=== PATIENT | female | born 1950 | race Caucasian/White ===

== ENCOUNTER → 2018-10-05 11:17 | Outpatient (CLI) | payer MEDICARE, OTHER, SELFPAY ==
[2018-10-07 13:49] LABS: Rubeola Measles IgG > 300.00 AU/mL (< 25.00)
== END ==
PROVIDERS: Family Provider Specialist; PCP Family Medicine; Visit Provider Family Medicine
DX: Z11.59 Encounter for screening for other viral diseases (principal)
CPT/HCPCS: 36415; 86765

== ENCOUNTER 2018-12-14 07:55 | Day surgery (SDC) | payer MEDICARE, OTHER, SELFPAY ==
[2018-12-07 12:08] VITALS: BMI 19.3
[2018-12-14] VITALS (9 sets, daily range): BP systolic 99–129; BP diastolic 48–72; PULSE 55–64; RESP 12–16; TEMP 36.1–36.4; O2SAT 95–99; BMI 18.8
--- NOTE | 2018-12-14 | PATH_ITS ---
[facility] Accession Number: [id number] . 01 Material submitted: . endometrium - ENDOMETRIAL CURRETTINGS . 02 Diagnosis: Endometrium, Curettage: Complex endometrial hyperplasia without atypia. Please see comment. V/12/16/2018 . 02 Comment: As part of routine quality assurance director, this case was also reviewed by Dr. Finney, who agrees with the diagnosis. . 02 Electronically signed: . Christina Khanna MD, Pathologist NPI- [id number] . 01 Gross description: . ENDOMETRIAL CURRETTINGS: Received in formalin are minute fragments of mucoid and hemorrhagic material measuring 1.5 x 1.5 x 0.4 cm in aggregate. Submitted in toto in 1 cassette. /DM /DM . 02 Pathologist provided ICD-10: N85.01 . 02 CPT . 118974 Performed at: 01 [facility] [address], [place], [place] [id number] MD Cain Simpson MD Phone: [phone] Performed at: 02 [facility] [place] [address] [place], [place] [id number] MD Christina Khanna MD Phone: [phone]
[2018-12-14] MEDS: LACTATED RINGERS 1,000 ML 42 ML IV (08:15)
--- NOTE | 2018-12-14 08:30 | PM.PREOP ---
Pre-operative Note Interval Note History & Physical reviewed/Exam performed by Physician: Yes Changes to H&P: No H&P completed within 30 days and has changed as indicated here:: see 12/08 out pt note
--- NOTE | 2018-12-14 09:08 | SUR.OPER ---
Lithotomy on padded OR bed, head on pillow, arms secured on padded arm boards at <90 degrees abduction. Legs secured in padded yellow fins stirrups.
--- NOTE | 2018-12-14 09:35 | PM.OP.1 ---
Operative Date/Time/Diagnoses Date of procedure: 12/14/18 Time of procedure: 09:35 Pre-op diagnosis: Postmenopausal bleeding Post-op diagnosis: same Procedure & Clinicians Procedure: Hysteroscopy with resection of polyp and D&C Same procedure as scheduled: Yes Indications: Postmenopausal bleeding Surgeon: Ruchi Nash Click Yes if Unassisted: Yes Anesthesia Type: General Operative Notes Findings: Endometrial polyp with irregular endometrial lining Closure Type: not applicable Specimen(s): other (Resected polyp and endometrial curettage) Estimated Blood Loss (mL): 10 Blood products transfused: none Procedure in detail: The patient was brought to the operating room where she underwent general anesthesia. She was placed in low stirrups She was prepped and draped in usual sterile fashion with pulsatile stockings in place and functional, warming in place. No antibiotics were indicated. Her bladder was drained with in and out catheter. A single-tooth tenaculum was placed on the anterior lip of the cervix and the uterus dilated to #8 Hegar dilator. The hysteroscope was placed into the uterus with a sorbitol solution running and under constant suction. The resecting loop set at 80 W of cutting was used to resect the polyp down to the level of the endometrium. A endometrial curettage was performed. The fibroid and the endometrial curettage was sent to pathology. The patient went to recovery room in good condition counts of instruments and sponges were correct. The sorbitol solution I=O approximately 1000 mL. Complications: none Condition: stable Disposition: same day surgery Plan for aftercare: Home when awake and stable follow-up in 2 week
== END 2018-12-14 10:34 | disposition home or self-care (01) ==
PROVIDERS: Family Provider Specialist; PCP Family Medicine; Visit Provider Specialist
PROC: 0UDB8ZZ Extraction of Endometrium, Via Natural or Artificial Opening Endoscopic (ICD-10-PCS; CPT 58558; principal; 2018-12-14 08:45)
DX: N85.01 Benign endometrial hyperplasia (principal)
CPT/HCPCS: 58558; 88305; J1100; J1885; J2405; J2704; J3010

== ENCOUNTER → 2019-01-16 13:03 | Outpatient (CLI) | payer MEDICARE, OTHER, SELFPAY ==
--- NOTE | 2019-01-16 | DI.MG.S_ITS ---
BILATERAL DIGITAL SCREENING MAMMOGRAM 3D/2D WITH CAD: 01/16/2019 CLINICAL: Routine screening. Comparison is made to exams dated: 12/25/2017 mammogram, 10/14/2016 mammogram, and 02/18/2015 mammogram - [facility]. The tissue of both breasts is heterogeneously dense. This may lower the sensitivity of mammography. Current study was also evaluated with a Computer Aided Detection (CAD) system. No significant masses, calcifications, or other findings are seen in either breast. There has been no significant interval change. IMPRESSION: NEGATIVE There is no mammographic evidence of malignancy. A 1 year screening mammogram is recommended. This exam was interpreted at Station ID: [id number]. NOTE: For mammograms, a report in lay terms will be sent to the patient. Approximately 15% of breast malignancies will not be visualized mammographically. In the management of a palpable breast mass, a negative mammogram must not discourage biopsy of a clinically suspicious lesion. Electronically Signed By: Basim salazar/patricia:01/16/2019 13:47:45 letter sent: Normal Exam ACR BI-RADS Category 1: Negative [id number]
== END ==
PROVIDERS: Family Provider Specialist; PCP Family Medicine; Visit Provider Specialist
DX: Z12.31 Encounter for screening mammogram for malignant neoplasm of breast (principal)
CPT/HCPCS: 77063; 77067

== ENCOUNTER → 2020-04-25 11:04 | Outpatient (CLI) | payer MEDICARE, OTHER, SELFPAY ==
[2020-04-26 10:09] LABS: COVID19 Sendout Not Detected (Not Detected)
== END ==
PROVIDERS: Family Provider Specialist; PCP Family Medicine; Visit Provider Nurse Practitioner
DX: R05 Cough (principal); R53.83 Other fatigue; Z11.59 Encounter for screening for other viral diseases
CPT/HCPCS: 87635

== ENCOUNTER → 2020-05-15 08:34 | Outpatient (CLI) | payer MEDICARE, OTHER, SELFPAY ==
[2020-05-16 18:30] LABS: COVID19 Sendout Not Detected (Not Detected)
== END ==
PROVIDERS: Family Provider Specialist; PCP Family Medicine; Visit Provider Physician Assistant
DX: Z11.59 Encounter for screening for other viral diseases (principal)
CPT/HCPCS: 87635

== ENCOUNTER → 2021-01-13 16:13 | Outpatient (CLI) | payer MEDICARE, OTHER, SELFPAY ==
[2021-01-13 18:03] LABS: COVID19 -Nasal RAPID Negative (Negative)
== END ==
PROVIDERS: Family Provider Specialist; PCP Family Medicine; Visit Provider Student in an Organized Health Care Education/Training Program
DX: Z20.822 Contact with and (suspected) exposure to COVID-19 (principal)
CPT/HCPCS: 87635

== ENCOUNTER 2021-04-24 20:02 | Emergency (ER) | payer MEDICARE, OTHER, SELFPAY ==
--- NOTE | 2021-04-24 20:06 | ED.EPISTAXIS ---
HPI - Epistaxis General Chief complaint: Nasal Problem Stated complaint: nose bleed, valtrex potential comp. referral Time Seen by Provider: 04/24/21 20:05 History of Present Illness HPI Narrative: 70F nonsmoker presents with history of nosebleed off and on for the past 2 days. She denies any trauma or injury and takes no blood thinners. She denies any upper respiratory complaints such as runny nose, sneezing or cough. A few times a year she has an outbreak of herpetic lesions and had just started valacyclovir 2 days ago. She consulted with her primary care provider who said if the bleeding starts again she should present to the emergency department due to potential complications with thrombocytopenia. She denies any other bleeding such as gums with brushing teeth, hemoptysis, in her urine. She denies any chest pain or shortness of breath and is otherwise well and free of complaint Related Data Home Medications Medication Instructions Recorded Confirmed magnesium 200 mg tablet 400 mg PO DAILY tab 12/08/18 03/29/19 Previous Rx's Medication Instructions Recorded Progesterone Cream 30mg/dose 30 mg TOPICAL .QD #30 each 01/09/19 estradiol 0.05 mg/24 hr semiweekly 1 patch TRANSDERMAL 2XW #8 each 10/24/19 transdermal patch (Vivelle-Dot) Allergies Allergy/AdvReac Type Severity Reaction Status Date / Time Penicillins [PENICILLINS] Allergy Mild Verified 04/25/20 11:24 Review of Systems Review of Systems Narrative: GENERAL: Denies chills, fatigue, malaise, fever, sweats. HEENT: See HPI RESPIRATORY: Denies dyspnea, cough, wheezing, hemoptysis, sputum. CARDIOVASCULAR: Denies chest pain, palpitations, orthopnea, edema, GASTROINTESTINAL: Denies nausea, vomiting, abdominal pain, diarrhea, constipation, melena. : Denies dysuria, frequency, incontinence, hematuria, urinary retention. MUSCULOSKELETAL: denies weakness, joint pain, or bony pain SKIN: Denies rash, skin lesions, or other NEUROLOGIC: Denies weakness, headache, numbness, change in speech, confusion, seizures, incoordination. PSYCHIATRIC: No concerning psychosocial issues. 12 point review of systems is negative except for those stated above Patient History Medical History Chicken pox (1960) Colon polyps Foot pain (~08/2015) Headache (~1969) Hemorrhoids Herpes (1969) Migraines (1969) Mumps (1960) Postmenopausal bleeding Restless leg syndrome Rubella (~1957) Seasonal allergies Surgical History H/O dilation and curettage History of salpingectomy History of tonsillectomy No history of previous surgery (06/16/15) Status post surgery (06/17/15) Family History Brother Age: 81 Cancer Diabetes mellitus Father Cancer Prostate cancer Grandfather Heart disease Heart attack Grandmother Dementia Pneumonia Mother Hypertension Kidney failure Sister Cancer Lymphoma Grandfather Pneumonia Grandmother Pneumonia Social History marital status: household members: none lives independently: Yes pets and animals: Yes education level: master's degree occupational status: other Smoking Status: Never smoker alcohol intake: never substance use type: does not use Smoking Status: Never smoker Substance Use Type: does not use Exam Narrative Exam Narrative: GENERAL: [70] year old patient appears stated age. Well-developed patient, in mild distress. HEAD: Atraumatic. Normocephalic. EYES: Pupils equal round and reactive. Extraocular motions intact. No scleral icterus. No injection or drainage. ENT: Fresh clots in right naris, no obvious source of bleeding Nose without bleeding, purulent drainage. Throat without erythema, tonsillar hypertrophy or exudate. Airway patent. NECK: Trachea midline. Non tender CARDIOVASCULAR: Regular rate and rhythm without murmurs, gallops, or rubs. RESPIRATORY: Clear to auscultation. Breath sounds equal bilaterally. No wheezes, rales, or rhonchi. GASTROINTESTINAL: Abdomen soft, non-tender, nondistended. EXTREMITIES: No edema or joint tenderness. BACK: Nontender without deformity or crepitance. No flank tenderness. NEURO: AOx3. SKIN: No rash or erythema of visible areas Initial Vital Signs Initial Vital Signs: Vital Signs Temperature 98.3 F 04/24/21 20:14 Pulse Rate 72 04/24/21 20:14 Respiratory Rate 14 04/24/21 20:14 Blood Pressure 139/67 04/24/21 20:14 Pulse Oximetry 97 04/24/21 20:14 Course Orders Ordered: ED Orders 04/24/21 20:30 Complete Blood Count AUTO DIFF Stat Prothrombin Time INR Stat Discontinued Medications Oxymetazoline HCl (Oxymetazoline Nasal [place] 15 Ml) 2 sprays NASAL NOW ONE Stop: 04/24/21 20:20 Last Admin: 04/24/21 21:34 Dose: Not Given Documented by: VINCENZO Vital Signs Vital signs: Vital Signs - 8 hr 04/24/21 20:14 04/24/21 21:35 Temperature 98.3 F Pulse Rate 72 67 Respiratory Rate 14 Blood Pressure 139/67 129/63 Pulse Oximetry 97 97 MDM - Epistaxis Lab Data Result diagrams: 04/24/21 20:30 Labs: Lab Results 04/24/21 04/24/21 Range/Units 20:30 20:30 WBC 4.9 (4.5-11.0) X10^3/uL RBC 4.22 (4.0-5.2) X10^6/uL Hgb 13.0 (12.0-16.0) g/dL Hct 38.8 (36-46) % MCV 91.8 (80-100) fL MCH 30.8 (26-34) PG MCHC 33.6 (30-36) % RDW 12.5 (11.6-14.8) % Plt Count 219 (150-400) X10^3/uL Neut % (Auto) 52.4 (50-75) % Lymph % (Auto) 36.2 (25-40) % [place] % (Auto) 6.5 (3-14) % Eos % (Auto) 4.2 H (2-4) % Baso % (Auto) 0.7 (0-2) % Neut # (Auto) 2600 (6018-1896) /uL Lymph # (Auto) 1800 (7067-4583) /uL [place] # (Auto) 300 (0-900) /uL Eos # (Auto) 200 (0-450) /uL Baso # (Auto) 0 (0-100) /uL PT 11.6 (10.1-12.7) SECONDS INR 1.0 (0.9-1.3) MDM Narrative Medical decision making narrative: Patient with 2 brief, mild episodes of epistaxis in the absence of injury, picking, upper respiratory complaints. Given her recent use of antivirals she was sent for evaluation. She is largely asymptomatic, has a very reassuring exam with no active bleeding. There is no obvious source and though cautery was considered, it was not employed as there is no active bleeding. She has no petechiae, stable platelets and coagulation studies. She is given extensive return precautions and questions have been answered to her apparent satisfaction Discharge Plan Departure Patient Disposition: Home Clinical Impression: Epistaxis Instructions: DI for Nosebleed Activity Restrictions/Additional Instructions: *You have been diagnosed with [ acute anterior epistaxis ] *What to do: * do not blow your nose, stick your finger in her nose, or disturb nose for the next 24 hr. If you must sneeze please sneeze out your mouth like we talked about *Follow up with your primary care provider or ENT doctor in 2-3 days, call for an appointment. Let them know you were seen in the Emergency Department and that we ask that you be seen in follow up *Return to ER if you should have any new, worsening or concerning symptoms * if you are bleeding starts again at home please place a portion of a cotton ball in your nostril and squirt some of the Afrin you were given in your nose. Apply the nose clamp and uses a watch or o'clock to time yourself for 15 min. At the end 15 min recheck for bleeding, if you continue to bleed please repeat the process for another 15 min. If at the end of 30 min you still have bleeding you should return to the emergency department Prescriptions: No Action Progesterone Cream 30mg/dose 30 mg topical .QD Qty: 30 RF: 11 estradiol [Vivelle-Dot] 0.05 mg/24 hr patch semiweekly 1 patch transdermal 2XW Qty: 8 RF: 3 magnesium 200 mg tablet 400 mg PO DAILY RF: 0 Referrals: Jayne Vela DO [Primary Care Provider] -
[2021-04-24 20:14] VITALS: BP 139/67; PULSE 72; RESP 14; TEMP 36.8; O2SAT 97; BMI 19.1
[2021-04-24 20:40] LABS: Add Manual Diff / Slide Review NO; Basophils Absolute Auto 0 /uL (0-100); Basophils Percent Auto 0.7 % (0-2); Eosinophils Absolute Auto 200 /uL (0-450); Eosinophils Percent Auto 4.2 % (2-4); Hematocrit 38.8 % (36-46); Lymphocytes Absolute Auto 1800 /uL (1100-4500); Lymphocytes Percent Auto 36.2 % (25-40); Mean Corpuscular HGB Conc 33.6 % (30-36); Mean Corpuscular Hemoglobin 30.8 PG (26-34); Mean Corpuscular Volume 91.8 fL (80-100); Monocytes Absolute Auto 300 /uL (0-900); Monocytes Percent Auto 6.5 % (3-14); Neutrophils Absolute Auto 2600 /uL (1500-7000); Neutrophils Percent Auto 52.4 % (50-75); Platelet Count 219 X10^3/uL (150-400); Red Blood Cell Count 4.22 X10^6/uL (4.0-5.2); Red Cell Distribution Width 12.5 % (11.6-14.8); White Blood Cell Count 4.9 X10^3/uL (4.5-11.0)
[2021-04-24 20:46] LABS: Prothrombin Time 11.6 SECONDS (10.1-12.7)
[2021-04-24 21:35] VITALS: BP 129/63; PULSE 67; O2SAT 97
== END 2021-04-24 21:35 | disposition home or self-care (01) ==
PROVIDERS: Emergency Provider Emergency Medicine; Family Provider Specialist; PCP Family Medicine
DX: R04.0 Epistaxis (principal)
CPT/HCPCS: 85025; 85610; 99281; 99283; A9270

== ENCOUNTER → 2021-08-01 10:18 | Outpatient (CLI) | payer MEDICARE, OTHER, SELFPAY ==
[2021-08-01 11:23] LABS: COVID19 -Nasal RAPID Negative (Negative)
== END ==
PROVIDERS: Family Provider Specialist; PCP Family Medicine; Visit Provider Nurse Practitioner Family
DX: Z20.822 Contact with and (suspected) exposure to COVID-19 (principal)
CPT/HCPCS: 87635; C9803

== ENCOUNTER → 2021-09-16 11:26 | Outpatient (CLI) | payer MEDICARE, OTHER, SELFPAY ==
[2021-09-16 14:20] LABS: COVID19 -Nasal RAPID Negative (Negative)
== END ==
PROVIDERS: Family Provider Specialist; PCP Family Medicine; Referring Provider Physician Assistant; Visit Provider Physician Assistant
DX: Z20.822 Contact with and (suspected) exposure to COVID-19 (principal); R05.9 Cough, unspecified; R06.7 Sneezing; R09.89 Other specified symptoms and signs involving the circulatory and respiratory systems
CPT/HCPCS: 87635

== ENCOUNTER 2024-07-05 11:30 | Outpatient (RCR) | payer MEDICARE, OTHER, SELFPAY ==
--- NOTE | 2024-04-18 11:59 | PT.OIE ---
Current Diagnoses Dorsalgia, unspecified (04/18/24) Past Medical History (Last Reviewed 09/08/22 @ 12:59 by REMA Otero) Chicken pox (1960) Colon polyps Foot pain (~08/2015) Headache (~1969) Hemorrhoids Herpes (1969) Migraines (1969) Mumps (1960) Postmenopausal bleeding Restless leg syndrome Rubella (~1957) Seasonal allergies Past Surgical History (Last Reviewed 09/08/22 @ 12:59 by REMA Otero) H/O dilation and curettage History of salpingectomy History of tonsillectomy No history of previous surgery (06/16/15) Status post surgery (06/17/15) Visit Care Team Role Provider Type Ruchi Nash MD Family Provider Physician Specialty: MOLDING ASSOCIATE Address: [address] [place] [address], [facility] Email: [email or web address] Sushma Hall MD Attending Provider Non-Staff Primary Care Provider Referring Provider Specialty: Internal Medicine Address: [address] [facility], ROOM [address], [address] Fax: Email: Physical Therapy Initial Evaluation PT-OP-A Visit Information Start: 04/17/24 14:59 Freq: Status: Active Protocol: Document 04/18/24 10:31 MB (Rec: 04/18/24 11:59 MB [id number]) Out-Patient Physical Therapy Visit Information Visit Information Visit Type Initial Evaluation Visit Note Medicare, progress note by 09/17 before KX Visit Start Time 10:31 Visit Stop Time 11:11 Visit Number 1 Number of QUARTER BACKER Visits 0 Evaluation Information Evaluation Date 04/18/24 Precautions Precautions Pt has PNA and states she is on anti-biotics. She had COVID 2 months ago. She hopes to get audograph operator visit this week. PT-OP-B Current Condition Start: 04/17/24 14:59 Freq: Status: Active Protocol: Document 04/18/24 10:31 MB (Rec: 04/18/24 11:59 MB [id number]) Current Condition History of Current Condition Onset Date Since age 24 y/o, 49 years Current Complaints Left sided intrascapular pain that moves into left migraine History of Current Condition Pt had COVID 2 months ago and she is currently being treated for PNA and she wears a mask to treatment. In November, pt hit her head and everything was clear except a tree and bud finding on chest CT. She has a follow-up in 6 months. [place] was in [place] when [place] fell in the [place]. February 06, she had COVID, was quite sick and felt better after 3 weeks. She never stopped coughing. Last week, she coughed up bright blood. She went back to and is referred to audograph operator and she has not yet had pulmonology appointment. In November, she had a phelgm test, could not cough up a lot, and it was negative for TB. Tree and bud has worsened in left lung sent then. Pt hasn't been feeling well and she has been coughing. 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 She gets migraines and she read about muscle knots. She takes hot baths, keeps her weight down, runs and she read in the [place] [employer] that she can get treatment from dry needling. Pt likes to have her left side worked on and not her right side. Pt sleeps on her left side and stretches out her left leg and bends up right knee and she sleeps with her arms up under her head. Pt denies numbness and tingling in UEs and LEs and she reports negative CA history. Treatment Goals Patient/Caregiver Goals To decreased left sided pain and to improve spinal mobility PT-OP-C Subjective Start: 04/17/24 14:59 Freq: Status: Active Protocol: Document 04/18/24 10:31 MB (Rec: 04/18/24 11:59 MB [id number]) OP-PT Subjective Patient Comments Patient Comments See history of current condition PT-OP-J Posture/Palpation/Skin Start: 04/17/24 14:59 Freq: Status: Active Protocol: Document 04/18/24 10:31 MB (Rec: 04/18/24 11:59 MB [id number]) Posture Evaluation Comments Posture Comments Standing posture in socks: mild Dowager's hump, right thoracic convexity and posterior positioning of thoracic spinal processes, right scapula mildly lower then the left, mild sway back, right iliac crest is mildly higher than the left, left foot is a little forward of right, increased Liat angle, mild overpronation B mid feet, forward and rounded shoulders . Sitting AROM thoracic rotation : right rotation is 10 deg less than to the left PT-OP-K Range of Motion Start: 04/17/24 14:59 Freq: Status: Active Protocol: Document 04/18/24 10:31 MB (Rec: 04/18/24 11:59 MB [id number]) Cervical Spine Range of Motion Cervical Spine Active Testing Position Standing Flexion 40 Extension 28 Rotation Left 60 Rotation Right 50 Lateral Flexion Left 18 Lateral Flexion Right 15 Comments Posture with head resting in mild left SB 5 deg Shoulder Goniometric Range of Motion Shoulder Left Active Testing Position Standing Flexion 160 Comments Normal abduction and IR Right Active Testing Position Standing Flexion 155 Comments Normal abduction and IR PT-OP-M Strength Start: 04/17/24 14:59 Freq: Status: Active Protocol: Document 04/18/24 10:31 MB (Rec: 04/18/24 11:59 MB [id number]) Shoulder Strength Shoulder Manual Muscle Testing Left Flexion 5 Normal Abduction (C5) 5 Normal Right Flexion 5 Normal Abduction (C5) 5 Normal Elbow/Forearm Strength Elbow and Forearm Manual Muscle Testing Left Flexion (C6) 5 Normal Extension (C7) 5 Normal Right Flexion (C6) 5 Normal Extension (C7) 5 Normal PT-OP-Q Treatments Start: 04/17/24 14:59 Freq: Status: Active Protocol: Document 04/18/24 10:31 MB (Rec: 04/18/24 11:59 MB [id number]) Self-Care/Home Management Treatment Education Patient Education Body Mechanics,Pain Management ,Posture,Safety Other Education Proper sleeping position with pillow between legs and arms and to avoid bringing hands/ arms up under pillow, enough pillow support under head for side lying, plan to hold PT for 3 weeks until pulmonology work-up is complete and not starting PT until she has no coughing up blood PT-OP-T Assessment and Plan Start: 04/17/24 14:59 Freq: Status: Active Protocol: Document 04/18/24 10:31 MB (Rec: 04/18/24 11:59 MB [id number]) Physical Therapy Assessment Rehab Potential Rehabilitation Potential Fair Evaluation Complexity Number of Personal Factors/Comorbidities 1-2 Number of Body Systems Impaired 1-2 Clinical Presentation at Evaluation Evolving Impairments Impairments Balance,Pain,Posture,ROM,Soft Tissue Mobility,Strength Goals 2 Impairment Lack of HEP Casting Assistant Goal (LTG) Pt will perform progressive alignment, breathing, flexibility, strengthenging and balance exercises with I to improve thoracic mobility and pain. LTG Duration 8 weeks 1 Impairment Decreased thoracic rotation in sitting, worse to the right Retirement Goal (LTG) Pt will present with B thoracic rotation in sitting equal and to at least 30 deg to improve pain. LTG Duration 8 weeks Assessment Summary Assessment Pt is a 73 y/o female reporting long history of scoliosis and left intrascapular muscular tension and pain and left migraines. She has experienced fall and hit on head in November, COVID and incidental finding in chest of tree and bud finding. She has coughed up bright red blood. She was recently put on anti-biotics for PNA and she is awaiting pulmonary work -up, which she hopes will happen this week. Pt arrives in mask. PT completes assessment and plan to hold PT treatment for 3 weeks or until she is cleared by audograph operator or until it is found out that she does not have something sinister going on with her lungs. Pt presents with spinal changes and tension, decreased thoracic and right shoulder AROM and myofascial changes. She will benefit from PT for exercise, postural, breathing and flexibility training and exercises and manual interventions. Physical Therapy Plan Frequency and Duration Frequency of Treatment 1-2x/wk Duration of treatment (weeks) 8 Plan of Care Start Date 04/18/24 Plan of Care End Date 06/19/24 Therapeutic Interventions Therapeutic Interventions Balance Training,Canalithic Repositioning,Home Exercise Program,Joint Mobilizations, Manual Therapy,Neuromuscular Re-education,Patient/Caregiver Education,Self-Care/Home Management,Soft Tissue Mobilization,Taping, Therapeutic Activities, Therapeutic Exercises Modalities Cold Pack/Ice Massage,Hot Packs Next Visit Focus/Plan Next Note Type Treatment Note Next Visit Plan Initiate thoracic mobility, manual work as appropriate if chest is clear
--- NOTE | 2024-04-18 12:00 | PT.OPPOC ---
Physical, Occupational & Speech Therapy At [facility] Current Diagnoses Dorsalgia, unspecified (04/18/24) Visit Care Team Role Provider Type Ruchi Nash MD Family Provider Physician Specialty: HYDROMETEOROLOGY TEACHER Address: [address] [place] [address], [id number] Email: [email or web address] Sushma Hall MD Attending Provider Non-Staff Primary Care Provider Referring Provider Specialty: Internal Medicine Address: [address] [facility] [facility], [place], [address] Fax: Email: Plan Of Care PT-OP-B Current Condition Start: 04/17/24 14:59 Freq: Status: Active Protocol: Document 04/18/24 10:31 MB (Rec: 04/18/24 11:59 MB [id number]) Current Condition History of Current Condition Onset Date Since age 24 y/o, 49 years Current Complaints Left sided intrascapular pain that moves into left migraine History of Current Condition Pt had COVID 2 months ago and she is currently being treated for PNA and she wears a mask to treatment. In November, pt hit her head and everything was clear except a tree and bud finding on chest CT. She has a follow-up in 6 months. [place] was in [place] when she fell in the [place]. February 06, she had COVID, was quite sick and felt better after 3 weeks. She never stopped coughing. Last week, she coughed up bright blood. She went back to and is referred to drafter directional survey and she has not yet had pulmonology appointment. In November, she had a phelgm test, could not cough up a lot, and it was negative for TB. Tree and bud has worsened in left lung sent then. Pt hasn't been feeling well and she has been coughing. 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 She gets migraines and she read about muscle knots. She takes hot baths, keeps her weight down, runs and she read in the [place] [employer] that she can get treatment from dry needling. Pt likes to have her left side worked on and not her right side. Pt sleeps on her left side and stretches out her left leg and bends up right knee and she sleeps with her arms up under her head. Pt denies numbness and tingling in UEs and LEs and she reports negative CA history. Treatment Goals Patient/Caregiver Goals To decreased left sided pain and to improve spinal mobility PT-OP-T Assessment and Plan Start: 04/17/24 14:59 Freq: Status: Active Protocol: Document 04/18/24 10:31 MB (Rec: 04/18/24 11:59 MB [id number]) Physical Therapy Assessment Rehab Potential Rehabilitation Potential Fair Evaluation Complexity Number of Personal Factors/Comorbidities 1-2 Number of Body Systems Impaired 1-2 Clinical Presentation at Evaluation Evolving Impairments Impairments Balance,Pain,Posture,ROM,Soft Tissue Mobility,Strength Goals 2 Impairment Lack of HEP Sap Bpc Developer Goal (LTG) Pt will perform progressive alignment, breathing, flexibility, strengthenging and balance exercises with I to improve thoracic mobility and pain. LTG Duration 8 weeks 1 Impairment Decreased thoracic rotation in sitting, worse to the right Jail Goal (LTG) Pt will present with B thoracic rotation in sitting equal and to at least 30 deg to improve pain. LTG Duration 8 weeks Assessment Summary Assessment Pt is a 73 y/o female reporting long history of scoliosis and left intrascapular muscular tension and pain and left migraines. She has experienced fall and hit on head in November, COVID and incidental finding in chest of tree and bud finding. She has coughed up bright red blood. She was recently put on anti-biotics for PNA and she is awaiting pulmonary work -up, which she hopes will happen this week. Pt arrives in mask. PT completes assessment and plan to hold PT treatment for 3 weeks or until she is cleared by drafter directional survey or until it is found out that she does not have something sinister going on with her lungs. Pt presents with spinal changes and tension, decreased thoracic and right shoulder AROM and myofascial changes. She will benefit from PT for exercise, postural, breathing and flexibility training and exercises and manual interventions. Physical Therapy Plan Frequency and Duration Frequency of Treatment 1-2x/wk Duration of treatment (weeks) 8 Plan of Care Start Date 04/18/24 Plan of Care End Date 06/19/24 Therapeutic Interventions Therapeutic Interventions Balance Training,Canalithic Repositioning,Home Exercise Program,Joint Mobilizations, Manual Therapy,Neuromuscular Re-education,Patient/Caregiver Education,Self-Care/Home Management,Soft Tissue Mobilization,Taping, Therapeutic Activities, Therapeutic Exercises Modalities Cold Pack/Ice Massage,Hot Packs Next Visit Focus/Plan Next Note Type Treatment Note Next Visit Plan Initiate thoracic mobility, manual work as appropriate if chest is clear Plan of Care Dates Plan of Care Start Date 04/18/24 Plan of Care End Date 06/19/24 Electronically Signed by: Marialuisa Romano, PT 04/18/24 1200 If you are in agreement with this Plan of Care, please return a signed and dated copy. I have reviewed this Plan of Care and certify that the skilled therapy services above are required to meet the patient?s needs. Physician Signature Date Printed Name and Credentials Clinical Instructor Signature Printed Name and Credentials
--- NOTE | 2024-04-26 15:30 | PT-OP ANOTE ---
PT calls pt who reports she is cleared by finish cleaner to con't with PT and I asked her to get in before her next appointment 05/23/24 to prevent greater than 30 days of her not being seen. PT communicates with front office about scheduling with pt.
--- NOTE | 2024-05-02 09:12 | PT-OP ANOTE ---
PT checks pt's schedule again and she is still not scheduled until 05/23, which is greater than 30 days since eval. PT has openings on 05/09 and communicated again with pt who states she called in and there was no answer and PT sends another pt message to front office about calling pt to schedule. PT also asks pt to call back to front office.
--- NOTE | 2024-05-03 14:31 | PT.OTN ---
Current Diagnoses Dorsalgia, unspecified (05/03/24) Physical Therapy Treatment Note PT-OP-A Visit Information Start: 04/17/24 14:59 Freq: Status: Active Protocol: Document 05/03/24 13:46 MB (Rec: 05/03/24 14:28 MB [id number]) Out-Patient Physical Therapy Visit Information Visit Information Visit Type Treatment Note Visit Note Medicare, progress note by 10/18 before KX Visit Start Time 13:46 Visit Stop Time 14:26 Visit Number 2 Number of SUPERVISOR LITHARGE Visits 0 Evaluation Information Evaluation Date 04/18/24 PT-OP-B Current Condition Start: 04/17/24 14:59 Freq: Status: Active Protocol: Document 04/18/24 10:31 MB (Rec: 04/18/24 11:59 MB [id number]) Current Condition History of Current Condition Onset Date Since age 24 y/o, 49 years Current Complaints Left sided intrascapular pain that moves into left migraine History of Current Condition Pt had COVID 2 months ago and she is currently being treated for PNA and she wears a mask to treatment. In November, pt hit her head and everything was clear except a tree and bud finding on chest CT. She has a follow-up in 6 months. [place] was [place] when she fell in the [place]. February 06, she had COVID, was quite sick and felt better after 3 weeks. She never stopped coughing. Last week, she coughed up bright blood. She went back to and is referred to manager home and she has not yet had pulmonology appointment. In November, she had a phelgm test, could not cough up a lot, and it was negative for TB. Tree and bud has worsened in left lung sent then. Pt hasn't been feeling well and she has been coughing. 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 She gets migraines and she read about muscle knots. She takes hot baths, keeps her weight down, runs and she read in the [place] [employer] that she can get treatment from dry needling. Pt likes to have her left side worked on and not her right side. Pt sleeps on her left side and stretches out her left leg and bends up right knee and she sleeps with her arms up under her head. Pt denies numbness and tingling in UEs and LEs and she reports negative CA history. Treatment Goals Patient/Caregiver Goals To decreased left sided pain and to improve spinal mobility PT-OP-C Subjective Start: 04/17/24 14:59 Freq: Status: Active Protocol: Document 05/03/24 13:46 MB (Rec: 05/03/24 14:28 MB [id number]) OP-PT Subjective Patient Comments Patient Comments Pt went to the manager home and she was reassuring. She will get another CT scan in 6 months. She had bacterial PNA that responded to antibiotic. Nobody ever said TB it was myobacterium. PT-OP-J Posture/Palpation/Skin Start: 04/17/24 14:59 Freq: Status: Active Protocol: Document 04/18/24 10:31 MB (Rec: 04/18/24 11:59 MB [id number]) Posture Evaluation Comments Posture Comments Standing posture in socks: mild Dowager's hump, right thoracic convexity and posterior positioning of thoracic spinal processes, right scapula mildly lower then the left, mild sway back, right iliac crest is mildly higher than the left, left foot is a little forward of right, increased Liat angle, mild overpronation B mid feet, forward and rounded shoulders . Sitting AROM thoracic rotation : right rotation is 10 deg less than to the left PT-OP-K Range of Motion Start: 04/17/24 14:59 Freq: Status: Active Protocol: Document 04/18/24 10:31 MB (Rec: 04/18/24 11:59 MB [id number]) Cervical Spine Range of Motion Cervical Spine Active Testing Position Standing Flexion 40 Extension 28 Rotation Left 60 Rotation Right 50 Lateral Flexion Left 18 Lateral Flexion Right 15 Comments Posture with head resting in mild left SB 5 deg Shoulder Goniometric Range of Motion Shoulder Left Active Testing Position Standing Flexion 160 Comments Normal abduction and IR Right Active Testing Position Standing Flexion 155 Comments Normal abduction and IR PT-OP-M Strength Start: 04/17/24 14:59 Freq: Status: Active Protocol: Document 04/18/24 10:31 MB (Rec: 04/18/24 11:59 MB [id number]) Shoulder Strength Shoulder Manual Muscle Testing Left Flexion 5 Normal Abduction (C5) 5 Normal Right Flexion 5 Normal Abduction (C5) 5 Normal Elbow/Forearm Strength Elbow and Forearm Manual Muscle Testing Left Flexion (C6) 5 Normal Extension (C7) 5 Normal Right Flexion (C6) 5 Normal Extension (C7) 5 Normal PT-OP-Q Treatments Start: 04/17/24 14:59 Freq: Status: Active Protocol: Document 05/03/24 13:46 MB (Rec: 05/03/24 14:28 MB [id number]) Manual Therapy Treatment Consent Patient gave verbal consent for manual Yes treatment Other Other Manual Treatments Pt supine with head and legs supported: B first rib isometric with more tension on the left, suboccipital release, B upper traps and SCM and paraspinal STM with more work on the right paraspinals, thoracic and rib positional release B and B iliopsoas positional release, left pect major positional release Self-Care/Home Management Treatment Education Other Education Plan for thoracic mobility and benefits of 55 cm therapy ball, education about spinal curvatures and what PT sees per pt request for explanation PT-OP-T Assessment and Plan Start: 04/17/24 14:59 Freq: Status: Active Protocol: Document 05/03/24 13:46 MB (Rec: 05/03/24 14:28 MB [id number]) Physical Therapy Assessment Rehab Potential Rehabilitation Potential Fair Evaluation Complexity Number of Personal Factors/Comorbidities 1-2 Number of Body Systems Impaired 1-2 Clinical Presentation at Evaluation Evolving Impairments Impairments Balance,Pain,Posture,ROM,Soft Tissue Mobility,Strength Goals 2 Impairment Lack of HEP Barrel Loader And Cleaner Goal (LTG) Pt will perform progressive alignment, breathing, flexibility, strengthenging and balance exercises with I to improve thoracic mobility and pain. LTG Duration 8 weeks 1 Impairment Decreased thoracic rotation in sitting, worse to the right Snf Goal (LTG) Pt will present with B thoracic rotation in sitting equal and to at least 30 deg to improve pain. LTG Duration 8 weeks Assessment Summary Assessment Initiated manual assessment and work today. Pt is feeling better and will initiate exercises next treatment date. Physical Therapy Plan Frequency and Duration Frequency of Treatment 1-2x/wk Duration of treatment (weeks) 8 Plan of Care Start Date 04/18/24 Plan of Care End Date 06/19/24 Therapeutic Interventions Therapeutic Interventions Balance Training,Canalithic Repositioning,Home Exercise Program,Joint Mobilizations, Manual Therapy,Neuromuscular Re-education,Patient/Caregiver Education,Self-Care/Home Management,Soft Tissue Mobilization,Taping, Therapeutic Activities, Therapeutic Exercises Modalities Cold Pack/Ice Massage,Hot Packs Next Visit Focus/Plan Next Note Type Treatment Note Next Visit Plan Initiate thoracic mobility exercises including open book, Child's Pose and therapy ball , 55 cm, exercises, pelvic realignment exercises
--- NOTE | 2024-05-23 09:02 | PT.OTN ---
Current Diagnoses Dorsalgia, unspecified (05/23/24) Physical Therapy Treatment Note PT-OP-A Visit Information Start: 04/17/24 14:59 Freq: Status: Active Protocol: Document 05/23/24 08:28 MB (Rec: 05/23/24 09:02 MB [id number]) Out-Patient Physical Therapy Visit Information Visit Information Visit Type Treatment Note Visit Note Medicare 11/15 before KX Visit Start Time 08:28 Visit Stop Time 09:00 Visit Number 3 Number of INFORMIX DEVELOPER Visits 0 Evaluation Information Evaluation Date 04/18/24 PT-OP-B Current Condition Start: 04/17/24 14:59 Freq: Status: Active Protocol: Document 04/18/24 10:31 MB (Rec: 04/18/24 11:59 MB [id number]) Current Condition History of Current Condition Onset Date Since age 24 y/o, 49 years Current Complaints Left sided intrascapular pain that moves into left migraine History of Current Condition Pt had COVID 2 months ago and she is currently being treated for PNA and she wears a mask to treatment. In November, pt hit her head and everything was clear except a tree and bud finding on chest CT. She has a follow-up in 6 months. Pt was in [place] when she fell in the [place]. February 06, she had COVID, was quite sick and felt better after 3 weeks. She never stopped coughing. Last week, she coughed up bright blood. She went back to and is referred to solutions development analyst and she has not yet had pulmonology appointment. In November, she had a phelgm test, could not cough up a lot, and it was negative for TB. Tree and bud has worsened in left lung sent then. Pt hasn't been feeling well and she has been coughing. 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 She gets migraines and she read about muscle knots. She takes hot baths, keeps her weight down, runs and she read in the [place] that she can get treatment from dry needling. Pt likes to have her left side worked on and not her right side. Pt sleeps on her left side and stretches out her left leg and bends up right knee and she sleeps with her arms up under her head. Pt denies numbness and tingling in UEs and LEs and she reports negative CA history. Treatment Goals Patient/Caregiver Goals To decreased left sided pain and to improve spinal mobility PT-OP-C Subjective Start: 04/17/24 14:59 Freq: Status: Active Protocol: Document 05/23/24 08:28 MB (Rec: 05/23/24 09:02 MB [id number]) OP-PT Subjective Patient Comments Patient Comments Pt has been feeling quite good . In the morning she is stiffer. She swam several times. Sleeping is okay and it is not great. PT-OP-J Posture/Palpation/Skin Start: 04/17/24 14:59 Freq: Status: Active Protocol: Document 04/18/24 10:31 MB (Rec: 04/18/24 11:59 MB [id number]) Posture Evaluation Comments Posture Comments Standing posture in socks: mild Dowager's hump, right thoracic convexity and posterior positioning of thoracic spinal processes, right scapula mildly lower then the left, mild sway back, right iliac crest is mildly higher than the left, left foot is a little forward of right, increased Liat angle, mild overpronation B mid feet, forward and rounded shoulders . Sitting AROM thoracic rotation : right rotation is 10 deg less than to the left PT-OP-K Range of Motion Start: 04/17/24 14:59 Freq: Status: Active Protocol: Document 04/18/24 10:31 MB (Rec: 04/18/24 11:59 MB [id number]) Cervical Spine Range of Motion Cervical Spine Active Testing Position Standing Flexion 40 Extension 28 Rotation Left 60 Rotation Right 50 Lateral Flexion Left 18 Lateral Flexion Right 15 Comments Posture with head resting in mild left SB 5 deg Shoulder Goniometric Range of Motion Shoulder Left Active Testing Position Standing Flexion 160 Comments Normal abduction and IR Right Active Testing Position Standing Flexion 155 Comments Normal abduction and IR PT-OP-M Strength Start: 04/17/24 14:59 Freq: Status: Active Protocol: Document 04/18/24 10:31 MB (Rec: 04/18/24 11:59 MB [id number]) Shoulder Strength Shoulder Manual Muscle Testing Left Flexion 5 Normal Abduction (C5) 5 Normal Right Flexion 5 Normal Abduction (C5) 5 Normal Elbow/Forearm Strength Elbow and Forearm Manual Muscle Testing Left Flexion (C6) 5 Normal Extension (C7) 5 Normal Right Flexion (C6) 5 Normal Extension (C7) 5 Normal PT-OP-Q Treatments Start: 04/17/24 14:59 Freq: Status: Active Protocol: Document 05/23/24 08:28 MB (Rec: 05/23/24 09:02 MB [id number]) Therapeutic Exercises Standing Exercises Racquet ball intrascapular massage Comments Ed today and added to HEP Manual Therapy Treatment Consent Patient gave verbal consent for manual Yes treatment Other Other Manual Treatments Pt prone with hips and legs supported: rib recoil thoracic spine and vertebra many levels, TrP x2 left subscap and pt tolerates well but no big TrP, more issues around paraspinal muscles Self-Care/Home Management Treatment Education Other Education Ed to check appointment times and bring in ball next treatment date PT-OP-T Assessment and Plan Start: 04/17/24 14:59 Freq: Status: Active Protocol: Document 05/23/24 08:28 MB (Rec: 05/23/24 09:02 MB [id number]) Physical Therapy Assessment Rehab Potential Rehabilitation Potential Fair Evaluation Complexity Number of Personal Factors/Comorbidities 1-2 Number of Body Systems Impaired 1-2 Clinical Presentation at Evaluation Evolving Impairments Impairments Balance,Pain,Posture,ROM,Soft Tissue Mobility,Strength Goals 2 Impairment Lack of HEP [employer] Services Program Associate Goal (LTG) Pt will perform progressive alignment, breathing, flexibility, strengthenging and balance exercises with I to improve thoracic mobility and pain. 05/23/24: Pt has only had one treatment so far and exercises have not been prescribed LTG Duration 8 weeks 1 Impairment Decreased thoracic rotation in sitting, worse to the right Residential Goal (LTG) Pt will present with B thoracic rotation in sitting equal and to at least 30 deg to improve pain. 05/23/24: B thoracic rotation is grossly 25 deg and pt reports pain to the right. LTG Duration 8 weeks Assessment Summary Assessment Only one treatment since assessment and so no real progression towards goals yet but pt is feeling better. Initiated first HEP exercise today. Physical Therapy Plan Frequency and Duration Frequency of Treatment 1-2x/wk Duration of treatment (weeks) 5 Plan of Care Start Date 05/23/24 Plan of Care End Date 06/27/24 Therapeutic Interventions Therapeutic Interventions Balance Training,Canalithic Repositioning,Home Exercise Program,Joint Mobilizations, Manual Therapy,Neuromuscular Re-education,Patient/Caregiver Education,Self-Care/Home Management,Soft Tissue Mobilization,Taping, Therapeutic Activities, Therapeutic Exercises Modalities Cold Pack/Ice Massage,Hot Packs Next Visit Focus/Plan Next Note Type Treatment Note Next Visit Plan Review her home yoga exercises , initiate thoracic mobility exercises including open book, Child's Pose and therapy ball , 55 cm, exercises, pelvic realignment exercises
--- NOTE | 2024-05-23 09:02 | PT.OPPOC ---
Physical, Occupational & Speech Therapy At [facility] Current Diagnoses Dorsalgia, unspecified (05/23/24) Visit Care Team Role Provider Type Ruchi Nash MD Family Provider Physician Specialty: ENTRY WRITER Address: [address] [place] [address], [id number] Email: [email or web address] Sushma Hall MD Attending Provider Non-Staff Primary Care Provider Referring Provider Specialty: Internal Medicine Address: [address] [facility], ROOM -[facility], [place], [address] Email: Plan Of Care PT-OP-B Current Condition Start: 04/17/24 14:59 Freq: Status: Active Protocol: Document 04/18/24 10:31 MB (Rec: 04/18/24 11:59 MB [id number]) Current Condition History of Current Condition Onset Date Since age 24 y/o, 49 years Current Complaints Left sided intrascapular pain that moves into left migraine History of Current Condition Pt had COVID 2 months ago and she is currently being treated for PNA and she wears a mask to treatment. In November, pt hit her head and everything was clear except a tree and bud finding on chest CT. She has a follow-up in 6 months. [place] was in [place] when she fell in the [place]. February 06, she had COVID, was quite sick and felt better after 3 weeks. She never stopped coughing. Last week, she coughed up bright blood. She went back to and is referred to painter helper sign and she has not yet had pulmonology appointment. In November, she had a phelgm test, could not cough up a lot, and it was negative for TB. Tree and bud has worsened in left lung sent then. Pt hasn't been feeling well and she has been coughing. 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 She gets migraines and she read about muscle knots. She takes hot baths, keeps her weight down, runs and she read in the [place] [employer] that she can get treatment from dry needling. Pt likes to have her left side worked on and not her right side. Pt sleeps on her left side and stretches out her left leg and bends up right knee and she sleeps with her arms up under her head. Pt denies numbness and tingling in UEs and LEs and she reports negative CA history. Treatment Goals Patient/Caregiver Goals To decreased left sided pain and to improve spinal mobility PT-OP-T Assessment and Plan Start: 04/17/24 14:59 Freq: Status: Active Protocol: Document 05/23/24 08:28 MB (Rec: 05/23/24 09:02 MB [id number]) Physical Therapy Assessment Rehab Potential Rehabilitation Potential Fair Evaluation Complexity Number of Personal Factors/Comorbidities 1-2 Number of Body Systems Impaired 1-2 Clinical Presentation at Evaluation Evolving Impairments Impairments Balance,Pain,Posture,ROM,Soft Tissue Mobility,Strength Goals 2 Impairment Lack of HEP Technology Solutions Architect Goal (LTG) Pt will perform progressive alignment, breathing, flexibility, strengthenging and balance exercises with I to improve thoracic mobility and pain. 05/23/24: Pt has only had one treatment so far and exercises have not been prescribed LTG Duration 8 weeks 1 Impairment Decreased thoracic rotation in sitting, worse to the right Technology Solutions Architect Goal (LTG) Pt will present with B thoracic rotation in sitting equal and to at least 30 deg to improve pain. 05/23/24: B thoracic rotation is grossly 25 deg and pt reports pain to the right. LTG Duration 8 weeks Assessment Summary Assessment Only one treatment since assessment and so no real progression towards goals yet but pt is feeling better. Initiated first HEP exercise today. Physical Therapy Plan Frequency and Duration Frequency of Treatment 1-2x/wk Duration of treatment (weeks) 5 Plan of Care Start Date 05/23/24 Plan of Care End Date 06/27/24 Therapeutic Interventions Therapeutic Interventions Balance Training,Canalithic Repositioning,Home Exercise Program,Joint Mobilizations, Manual Therapy,Neuromuscular Re-education,Patient/Caregiver Education,Self-Care/Home Management,Soft Tissue Mobilization,Taping, Therapeutic Activities, Therapeutic Exercises Modalities Cold Pack/Ice Massage,Hot Packs Next Visit Focus/Plan Next Note Type Treatment Note Next Visit Plan Review her home yoga exercises , initiate thoracic mobility exercises including open book, Child's Pose and therapy ball , 55 cm, exercises, pelvic realignment exercises Plan of Care Dates Plan of Care Start Date 05/23/24 Plan of Care End Date 06/27/24 Electronically Signed by: Marialuisa Romano, PT 05/23/24 0902 If you are in agreement with this Plan of Care, please return a signed and dated copy. I have reviewed this Plan of Care and certify that the skilled therapy services above are required to meet the patient?s needs. Physician Signature Date Printed Name and Credentials Clinical Instructor Signature Printed Name and Credentials
--- NOTE | 2024-05-29 16:57 | PT-OP ANOTE ---
Pt canceled tomorrow's appointment on 05/30. Overall, pt has not been attending OPPT often and so monitor. If unable to attend PT/increased cancellations, consider d/c if cannot progress towards goals or work in POC.
--- NOTE | 2024-06-06 11:26 | PT.OTN ---
Current Diagnoses Dorsalgia, unspecified (06/06/24) Physical Therapy Treatment Note PT-OP-A Visit Information Start: 04/17/24 14:59 Freq: Status: Active Protocol: Document 06/06/24 10:46 MB (Rec: 06/06/24 11:26 MB [id number]) Out-Patient Physical Therapy Visit Information Visit Information Visit Type Treatment Note Visit Note Medicare 11/15 before KX Next progress note by 06/22/24 Visit Start Time 10:46 Visit Stop Time 11:26 Visit Number 4 Number of DISEASE CASE MANAGER Visits 0 Evaluation Information Evaluation Date 04/18/24 PT-OP-B Current Condition Start: 04/17/24 14:59 Freq: Status: Active Protocol: Document 04/18/24 10:31 MB (Rec: 04/18/24 11:59 MB [id number]) Current Condition History of Current Condition Onset Date Since age 24 y/o, 49 years Current Complaints Left sided intrascapular pain that moves into left migraine History of Current Condition Pt had COVID 2 months ago and she is currently being treated for PNA and she wears a mask to treatment. In November, pt hit her head and everything was clear except a tree and bud finding on chest CT. She has a follow-up in 6 months. [place] was [place] when she fell in the [place]. February 06, she had COVID, was quite sick and felt better after 3 weeks. She never stopped coughing. Last week, she coughed up bright blood. 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 In November, she had a phelgm test, could not cough up a lot, and it was negative for TB. Tree and bud has worsened in left lung sent then. Pt hasn't been feeling well and she has been coughing. 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 She gets migraines and she read about muscle knots. She takes hot baths, keeps her weight down, runs and she read in the [place] that she can get treatment from dry needling. Pt likes to have her left side worked on and not her right side. Pt sleeps on her left side and stretches out her left leg and bends up right knee and she sleeps with her arms up under her head. Pt denies numbness and tingling in UEs and LEs and she reports negative CA history. Treatment Goals Patient/Caregiver Goals To decreased left sided pain and to improve spinal mobility PT-OP-C Subjective Start: 04/17/24 14:59 Freq: Status: Active Protocol: Document 06/06/24 10:46 MB (Rec: 06/06/24 11:26 MB [id number]) OP-PT Subjective Patient Comments Patient Comments TrP work was fine and pt is feeling pretty good. She cannot recall why she cancelled last appointment but may be due to cat. She is doing a lot of walking but is interested in exercises. PT-OP-J Posture/Palpation/Skin Start: 04/17/24 14:59 Freq: Status: Active Protocol: Document 04/18/24 10:31 MB (Rec: 04/18/24 11:59 MB [id number]) Posture Evaluation Comments Posture Comments Standing posture in socks: mild Dowager's hump, right thoracic convexity and posterior positioning of thoracic spinal processes, right scapula mildly lower then the left, mild sway back, right iliac crest is mildly higher than the left, left foot is a little forward of right, increased Liat angle, mild overpronation B mid feet, forward and rounded shoulders . Sitting AROM thoracic rotation : right rotation is 10 deg less than to the left PT-OP-K Range of Motion Start: 04/17/24 14:59 Freq: Status: Active Protocol: Document 04/18/24 10:31 MB (Rec: 04/18/24 11:59 MB [id number]) Cervical Spine Range of Motion Cervical Spine Active Testing Position Standing Flexion 40 Extension 28 Rotation Left 60 Rotation Right 50 Lateral Flexion Left 18 Lateral Flexion Right 15 Comments Posture with head resting in mild left SB 5 deg Shoulder Goniometric Range of Motion Shoulder Left Active Testing Position Standing Flexion 160 Comments Normal abduction and IR Right Active Testing Position Standing Flexion 155 Comments Normal abduction and IR PT-OP-M Strength Start: 04/17/24 14:59 Freq: Status: Active Protocol: Document 04/18/24 10:31 MB (Rec: 04/18/24 11:59 MB [id number]) Shoulder Strength Shoulder Manual Muscle Testing Left Flexion 5 Normal Abduction (C5) 5 Normal Right Flexion 5 Normal Abduction (C5) 5 Normal Elbow/Forearm Strength Elbow and Forearm Manual Muscle Testing Left Flexion (C6) 5 Normal Extension (C7) 5 Normal Right Flexion (C6) 5 Normal Extension (C7) 5 Normal PT-OP-Q Treatments Start: 04/17/24 14:59 Freq: Status: Active Protocol: Document 06/06/24 10:46 MB (Rec: 06/06/24 11:26 MB [id number]) Therapeutic Exercises Sidelying Exercises Open book Sidelying Exercise Name HEP Side bilateral Comments 5 reps each side Standing Exercises Progressive doorway stretch Standing Exercise Name HEP Side bilateral Comments Pect to hip flexor to QL stretch Other Exercises Therapy ball exercises Other Exercise Name HEP Side bilateral Comments Pect stretch with bridge, QL stretch Child's pose Other Exercise Name HEP Comments Forward and then walking hands side to side PT-OP-T Assessment and Plan Start: 04/17/24 14:59 Freq: Status: Active Protocol: Document 06/06/24 10:46 MB (Rec: 06/06/24 11:26 MB [id number]) Physical Therapy Assessment Rehab Potential Rehabilitation Potential Fair Evaluation Complexity Number of Personal Factors/Comorbidities 1-2 Number of Body Systems Impaired 1-2 Clinical Presentation at Evaluation Evolving Impairments Impairments Balance,Pain,Posture,ROM,Soft Tissue Mobility,Strength Goals 2 Impairment Lack of HEP Basket Assembler Goal (LTG) Pt will perform progressive alignment, breathing, flexibility, strengthenging and balance exercises with I to improve thoracic mobility and pain. 05/23/24: Pt has only had one treatment so far and exercises have not been prescribed LTG Duration 8 weeks 1 Impairment Decreased thoracic rotation in sitting, worse to the right [facility] Goal (LTG) Pt will present with B thoracic rotation in sitting equal and to at least 30 deg to improve pain. 05/23/24: B thoracic rotation is grossly 25 deg and pt reports pain to the right. LTG Duration 8 weeks Assessment Summary Assessment Initiated yoga and therapy ball exercises today and may need to review doorway and therapy ball exercises next treatment and pt may bring in her ball. Increased time looking at therapy balls and working through exercises today. Physical Therapy Plan Frequency and Duration Frequency of Treatment 1-2x/wk Duration of treatment (weeks) 5 Plan of Care Start Date 06/06/24 Plan of Care End Date 07/28/24 Therapeutic Interventions Therapeutic Interventions Balance Training,Canalithic Repositioning,Home Exercise Program,Joint Mobilizations, Manual Therapy,Neuromuscular Re-education,Patient/Caregiver Education,Self-Care/Home Management,Soft Tissue Mobilization,Taping, Therapeutic Activities, Therapeutic Exercises Modalities Cold Pack/Ice Massage,Hot Packs Next Visit Focus/Plan Next Note Type Treatment Note Next Visit Plan Initiate gentle core progression in hook lying ( handouts in PT's desk drawer), consider standing intrascapular and shoulder strengthening with band, ongoing manual work and pelvic tilts with core engaged over therapy ball
--- NOTE | 2024-06-06 11:26 | PT.OPPOC ---
Physical, Occupational & Speech Therapy At [facility] Current Diagnoses Dorsalgia, unspecified (06/06/24) Visit Care Team Role Provider Type Ruchi Nash MD Family Provider Physician Specialty: COSMETIC COUNSELOR Address: [address] [place] [address], [address] Email: [email or web address] Sushma Hall MD Attending Provider Non-Staff Primary Care Provider Referring Provider Specialty: Internal Medicine Address: [address] [facility], ROOM -[facility], [place], [address] Email: Plan Of Care PT-OP-B Current Condition Start: 04/17/24 14:59 Freq: Status: Active Protocol: Document 04/18/24 10:31 MB (Rec: 04/18/24 11:59 MB [id number]) Current Condition History of Current Condition Onset Date Since age 24 y/o, 49 years Current Complaints Left sided intrascapular pain that moves into left migraine History of Current Condition Pt had COVID 2 months ago and she is currently being treated for PNA and she wears a mask to treatment. In November, pt hit her head and everything was clear except a tree and bud finding on chest CT. She has a follow-up in 6 months. [place] was [place] when she fell in the [place]. February 06, she had COVID, was quite sick and felt better after 3 weeks. She never stopped coughing. Last week, she coughed up bright blood. She went back to and is referred to long line teamster and she has not yet had pulmonology appointment. In November, she had a phelgm test, could not cough up a lot, and it was negative for TB. Tree and bud has worsened in left lung sent then. Pt hasn't been feeling well and she has been coughing. 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 She gets migraines and she read about muscle knots. She takes hot baths, keeps her weight down, runs and she read in the [place] that she can get treatment from dry needling. Pt likes to have her left side worked on and not her right side. Pt sleeps on her left side and stretches out her left leg and bends up right knee and she sleeps with her arms up under her head. Pt denies numbness and tingling in UEs and LEs and she reports negative CA history. Treatment Goals Patient/Caregiver Goals To decreased left sided pain and to improve spinal mobility PT-OP-T Assessment and Plan Start: 04/17/24 14:59 Freq: Status: Active Protocol: Document 06/06/24 10:46 MB (Rec: 06/06/24 11:26 MB [id number]) Physical Therapy Assessment Rehab Potential Rehabilitation Potential Fair Evaluation Complexity Number of Personal Factors/Comorbidities 1-2 Number of Body Systems Impaired 1-2 Clinical Presentation at Evaluation Evolving Impairments Impairments Balance,Pain,Posture,ROM,Soft Tissue Mobility,Strength Goals 2 Impairment Lack of HEP Pension Manager Goal (LTG) Pt will perform progressive alignment, breathing, flexibility, strengthenging and balance exercises with I to improve thoracic mobility and pain. 05/23/24: Pt has only had one treatment so far and exercises have not been prescribed LTG Duration 8 weeks 1 Impairment Decreased thoracic rotation in sitting, worse to the right Pension Manager Goal (LTG) Pt will present with B thoracic rotation in sitting equal and to at least 30 deg to improve pain. 05/23/24: B thoracic rotation is grossly 25 deg and pt reports pain to the right. LTG Duration 8 weeks Assessment Summary Assessment Initiated yoga and therapy ball exercises today and may need to review doorway and therapy ball exercises next treatment and pt may bring in her ball. Increased time looking at therapy balls and working through exercises today. Physical Therapy Plan Frequency and Duration Frequency of Treatment 1-2x/wk Duration of treatment (weeks) 5 Plan of Care Start Date 06/06/24 Plan of Care End Date 07/28/24 Therapeutic Interventions Therapeutic Interventions Balance Training,Canalithic Repositioning,Home Exercise Program,Joint Mobilizations, Manual Therapy,Neuromuscular Re-education,Patient/Caregiver Education,Self-Care/Home Management,Soft Tissue Mobilization,Taping, Therapeutic Activities, Therapeutic Exercises Modalities Cold Pack/Ice Massage,Hot Packs Next Visit Focus/Plan Next Note Type Treatment Note Next Visit Plan Initiate gentle core progression in hook lying ( handouts in PT's desk drawer), consider standing intrascapular and shoulder strengthening with band, ongoing manual work and pelvic tilts with core engaged over therapy ball Plan of Care Dates Plan of Care Start Date 06/06/24 Plan of Care End Date 07/28/24 Electronically Signed by: Marialuisa Romano, AJAY 06/06/24 1126 If you are in agreement with this Plan of Care, please return a signed and dated copy. I have reviewed this Plan of Care and certify that the skilled therapy services above are required to meet the patient?s needs. Physician Signature Date Printed Name and Credentials Clinical Instructor Signature Printed Name and Credentials
--- NOTE | 2024-06-13 16:24 | PT.OTN ---
Current Diagnoses Dorsalgia, unspecified (06/13/24) Physical Therapy Treatment Note PT-OP-A Visit Information Start: 04/17/24 14:59 Freq: Status: Active Protocol: Document 06/13/24 10:47 SW (Rec: 06/13/24 11:35 SW [id number]) Out-Patient Physical Therapy Visit Information Visit Information Visit Type Treatment Note Visit Note Medicare 12/16 before KX Next progress note by 06/22/24 pt late Visit Start Time 10:51 Visit Stop Time 11:31 Visit Number 5 Number of SALES ASSOCIATE Visits 1 PT-OP-B Current Condition Start: 04/17/24 14:59 Freq: Status: Active Protocol: Document 04/18/24 10:31 MB (Rec: 04/18/24 11:59 MB [id number]) Current Condition History of Current Condition Onset Date Since age 24 y/o, 49 years Current Complaints Left sided intrascapular pain that moves into left migraine History of Current Condition Pt had COVID 2 months ago and she is currently being treated for PNA and she wears a mask to treatment. In November, pt hit her head and everything was clear except a tree and bud finding on chest CT. She has a follow-up in 6 months. Pt was in [place] when she fell in the ocean. February 06, she had COVID, was quite sick and felt better after 3 weeks. She never stopped coughing. Last week, she coughed up bright blood. She went back to and is referred to spanish professor and she has not yet had pulmonology appointment. In November, she had a phelgm test, could not cough up a lot, and it was negative for TB. Tree and bud has worsened in left lung sent then. Pt hasn't been feeling well and she has been coughing. 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 She gets migraines and she read about muscle knots. She takes hot baths, keeps her weight down, runs and she read in the [place] [employer] that she can get treatment from dry needling. Pt likes to have her left side worked on and not her right side. Pt sleeps on her left side and stretches out her left leg and bends up right knee and she sleeps with her arms up under her head. Pt denies numbness and tingling in UEs and LEs and she reports negative CA history. Treatment Goals Patient/Caregiver Goals To decreased left sided pain and to improve spinal mobility PT-OP-C Subjective Start: 04/17/24 14:59 Freq: Status: Active Protocol: Document 06/13/24 10:47 SW (Rec: 06/13/24 11:35 SW [id number]) OP-PT Subjective Patient Comments Patient Comments Pt reports I feel pretty good . Compliant with HEP. PT-OP-J Posture/Palpation/Skin Start: 04/17/24 14:59 Freq: Status: Active Protocol: Document 04/18/24 10:31 MB (Rec: 04/18/24 11:59 MB [id number]) Posture Evaluation Comments Posture Comments Standing posture in socks: mild Dowager's hump, right thoracic convexity and posterior positioning of thoracic spinal processes, right scapula mildly lower then the left, mild sway back, right iliac crest is mildly higher than the left, left foot is a little forward of right, increased Liat angle, mild overpronation B mid feet, forward and rounded shoulders . Sitting AROM thoracic rotation : right rotation is 10 deg less than to the left PT-OP-K Range of Motion Start: 04/17/24 14:59 Freq: Status: Active Protocol: Document 04/18/24 10:31 MB (Rec: 04/18/24 11:59 MB [id number]) Cervical Spine Range of Motion Cervical Spine Active Testing Position Standing Flexion 40 Extension 28 Rotation Left 60 Rotation Right 50 Lateral Flexion Left 18 Lateral Flexion Right 15 Comments Posture with head resting in mild left SB 5 deg Shoulder Goniometric Range of Motion Shoulder Left Active Testing Position Standing Flexion 160 Comments Normal abduction and IR Right Active Testing Position Standing Flexion 155 Comments Normal abduction and IR PT-OP-M Strength Start: 04/17/24 14:59 Freq: Status: Active Protocol: Document 04/18/24 10:31 MB (Rec: 04/18/24 11:59 MB [id number]) Shoulder Strength Shoulder Manual Muscle Testing Left Flexion 5 Normal Abduction (C5) 5 Normal Right Flexion 5 Normal Abduction (C5) 5 Normal Elbow/Forearm Strength Elbow and Forearm Manual Muscle Testing Left Flexion (C6) 5 Normal Extension (C7) 5 Normal Right Flexion (C6) 5 Normal Extension (C7) 5 Normal PT-OP-Q Treatments Start: 04/17/24 14:59 Freq: Status: Active Protocol: Document 06/13/24 10:47 (Rec: 06/13/24 11:35 [id number]) Therapeutic Exercises Supine Exercises Abdominal bracing Supine Exercise Name HEP 1.Abdominal bracing 2. Abdominal bracing w/ october Side bilateral Resistance AROM Reps/Minutes 1. 5x5>10 2. x10 ea Comments verbal/ tactile feedback to facilitate core activation Sidelying Exercises Open book Sidelying Exercise Name HEP review Side bilateral Comments 5 reps each side w/ 3 hold Standing Exercises Scapular retraction Standing Exercise Name not this session Progressive doorway stretch Standing Exercise Name HEP reviewed Side bilateral Comments Pect to hip flexor to QL stretch, cues for correct execution Racquet ball intrascapular massage Standing Exercise Name verbal review Other Exercises Therapy ball exercises Other Exercise Name HEP reviewed Side bilateral Comments Pect stretch with bridge, QL stretch, verbal/tactile cues for correct execu Child's pose Other Exercise Name HEP reviewed Comments Forward and then walking hands side to side PT-OP-T Assessment and Plan Start: 04/17/24 14:59 Freq: Status: Active Protocol: Document 06/13/24 10:47 (Rec: 06/13/24 11:35 [id number]) Physical Therapy Assessment Goals 2 Impairment Lack of HEP Auricular Detoxification Specialist Goal (LTG) Pt will perform progressive alignment, breathing, flexibility, strengthenging and balance exercises with I to improve thoracic mobility and pain. 05/23/24: Pt has only had one treatment so far and exercises have not been prescribed LTG Duration 8 weeks 1 Impairment Decreased thoracic rotation in sitting, worse to the right Auricular Detoxification Specialist Goal (LTG) Pt will present with B thoracic rotation in sitting equal and to at least 30 deg to improve pain. 05/23/24: B thoracic rotation is grossly 25 deg and pt reports pain to the right. LTG Duration 8 weeks Assessment Summary Assessment Reviewed HEP exercises this session, verbal and tactile cues required for correct carryover of exercises. Progressed pt with addition of hooklying core exercises. Pt challenged with new core stabilization exercises, SALES ASSOCIATE verbal and tactile cues to faciliate, pt tactile feedback and counting reps out loud, no breath holding; pt demonstrated and verbally acklnowledged understanding for HEP, HO given. Pt brought ball to session today, inflated and reviewed last sessions therapy ball exercises. Physical Therapy Plan Frequency and Duration Frequency of Treatment 1-2x/wk Duration of treatment (weeks) 5 Plan of Care Start Date 06/06/24 Plan of Care End Date 07/28/24 Therapeutic Interventions Therapeutic Interventions Balance Training,Canalithic Repositioning,Home Exercise Program,Joint Mobilizations, Manual Therapy,Neuromuscular Re-education,Patient/Caregiver Education,Self-Care/Home Management,Soft Tissue Mobilization,Taping, Therapeutic Activities, Therapeutic Exercises Modalities Cold Pack/Ice Massage,Hot Packs Next Visit Focus/Plan Next Note Type Treatment Note Next Visit Plan Initiate gentle core progression in hook lying ( handouts in PT's desk drawer), consider standing intrascapular and shoulder strengthening with band, ongoing manual work and pelvic tilts with core engaged over therapy ball
--- NOTE | 2024-06-20 11:30 | PT.OTN ---
Current Diagnoses Dorsalgia, unspecified (06/20/24) Physical Therapy Treatment Note PT-OP-A Visit Information Start: 04/17/24 14:59 Freq: Status: Active Protocol: Document 06/20/24 10:50 MB (Rec: 06/20/24 11:26 MB [id number]) Out-Patient Physical Therapy Visit Information Visit Information Visit Type Treatment Note Visit Note Medicare 02/15 before KX Pt late to appointment Visit Start Time 10:50 Visit Stop Time 11:30 Visit Number 6 Number of SUPERVISORY IT SPECIALIST Visits 0 Evaluation Information Evaluation Date 04/18/24 Precautions Precautions Just dx with osteoporosis PT-OP-B Current Condition Start: 04/17/24 14:59 Freq: Status: Active Protocol: Document 04/18/24 10:31 MB (Rec: 04/18/24 11:59 MB [id number]) Current Condition History of Current Condition Onset Date Since age 24 y/o, 49 years Current Complaints Left sided intrascapular pain that moves into left migraine History of Current Condition Pt had COVID 2 months ago and she is currently being treated for PNA and she wears a mask to treatment. In November, pt hit her head and everything was clear except a tree and bud finding on chest CT. She has a follow-up in 6 months. Pt was in [place] when she fell in the [place]. February 06, she had COVID, was quite sick and felt better after 3 weeks. She never stopped coughing. Last week, she coughed up bright blood. She went back to and is referred to furniture associate and she has not yet had pulmonology appointment. In November, she had a phelgm test, could not cough up a lot, and it was negative for TB. Tree and bud has worsened in left lung sent then. Pt hasn't been feeling well and she has been coughing. 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 She gets migraines and she read about muscle knots. She takes hot baths, keeps her weight down, runs and she read in the [place] [employer] that she can get treatment from dry needling. Pt likes to have her left side worked on and not her right side. Pt sleeps on her left side and stretches out her left leg and bends up right knee and she sleeps with her arms up under her head. Pt denies numbness and tingling in UEs and LEs and she reports negative CA history. Treatment Goals Patient/Caregiver Goals To decreased left sided pain and to improve spinal mobility PT-OP-C Subjective Start: 04/17/24 14:59 Freq: Status: Active Protocol: Document 06/20/24 10:50 MB (Rec: 06/20/24 11:26 MB [id number]) OP-PT Subjective Patient Comments Patient Comments Pt states she is feeling pretty good and is enjoying her exercises. PT-OP-J Posture/Palpation/Skin Start: 04/17/24 14:59 Freq: Status: Active Protocol: Document 04/18/24 10:31 MB (Rec: 04/18/24 11:59 MB [id number]) Posture Evaluation Comments Posture Comments Standing posture in socks: mild Dowager's hump, right thoracic convexity and posterior positioning of thoracic spinal processes, right scapula mildly lower then the left, mild sway back, right iliac crest is mildly higher than the left, left foot is a little forward of right, increased Liat angle, mild overpronation B mid feet, forward and rounded shoulders . Sitting AROM thoracic rotation : right rotation is 10 deg less than to the left PT-OP-K Range of Motion Start: 04/17/24 14:59 Freq: Status: Active Protocol: Document 04/18/24 10:31 MB (Rec: 04/18/24 11:59 MB [id number]) Cervical Spine Range of Motion Cervical Spine Active Testing Position Standing Flexion 40 Extension 28 Rotation Left 60 Rotation Right 50 Lateral Flexion Left 18 Lateral Flexion Right 15 Comments Posture with head resting in mild left SB 5 deg Shoulder Goniometric Range of Motion Shoulder Left Active Testing Position Standing Flexion 160 Comments Normal abduction and IR Right Active Testing Position Standing Flexion 155 Comments Normal abduction and IR PT-OP-M Strength Start: 04/17/24 14:59 Freq: Status: Active Protocol: Document 04/18/24 10:31 MB (Rec: 04/18/24 11:59 MB [id number]) Shoulder Strength Shoulder Manual Muscle Testing Left Flexion 5 Normal Abduction (C5) 5 Normal Right Flexion 5 Normal Abduction (C5) 5 Normal Elbow/Forearm Strength Elbow and Forearm Manual Muscle Testing Left Flexion (C6) 5 Normal Extension (C7) 5 Normal Right Flexion (C6) 5 Normal Extension (C7) 5 Normal PT-OP-Q Treatments Start: 04/17/24 14:59 Freq: Status: Active Protocol: Document 06/20/24 10:50 MB (Rec: 06/20/24 11:26 MB [id number]) Therapeutic Exercises Supine Exercises Abdominal bracing Comments Performing at home Sidelying Exercises Open book Comments Performing at home Standing Exercises Progressive doorway stretch Comments Verbally reviewed and performing at home Racquet ball intrascapular massage Comments Verbally reviewed today Other Exercises Therapy ball exercises Comments Verbally reviewed during progress note Child's pose Comments Verbally reviewed during progress note Manual Therapy Treatment Consent Patient gave verbal consent for manual Yes treatment Other Other Manual Treatments Pt prone: rib recoiling thoracic spine and ribs, more tightness on the right today and pt responds well and ribs are looser after treatment, PA mobs thoracic spine grade IV, side lying rib recoil B for thoracolumbar paraspinals and QL, TrP treatment left lower traps and paraspinals, left first rib isometric, MWM B infraspinatus, pt supine and right sternocostal recoiling PT-OP-T Assessment and Plan Start: 04/17/24 14:59 Freq: Status: Active Protocol: Document 06/20/24 10:50 MB (Rec: 06/20/24 11:26 MB [id number]) Physical Therapy Assessment Rehab Potential Rehabilitation Potential Fair Evaluation Complexity Number of Personal Factors/Comorbidities 1-2 Number of Body Systems Impaired 1-2 Clinical Presentation at Evaluation Evolving Impairments Impairments Balance,Pain,Posture,ROM,Soft Tissue Mobility,Strength Goals 2 Impairment Lack of HEP Electronic Imager Goal (LTG) Pt will perform progressive alignment, breathing, flexibility, strengthenging and balance exercises with I to improve thoracic mobility and pain. 05/23/24: Pt has only had one treatment so far and exercises have not been prescribed 06/20/24: Pt is doing doorway stretch, gentle core progression, open book, therapy ball exercises. LTG Duration 8 weeks 1 Impairment Decreased thoracic rotation in sitting, worse to the right Mcc Goal (LTG) Pt will present with B thoracic rotation in sitting equal and to at least 30 deg to improve pain. 05/23/24: B thoracic rotation is grossly 25 deg and pt reports pain to the right. 06/20/24: Pt progressing and looking equal 25-30 deg LTG Duration 8 weeks Assessment Summary Assessment Pt is progressing towards goals including HEP, thoracic rotation and reports of pain. Physical Therapy Plan Frequency and Duration Frequency of Treatment 1-2x/wk Duration of treatment (weeks) 5 Plan of Care Start Date 06/06/24 Plan of Care End Date 07/28/24 Therapeutic Interventions Therapeutic Interventions Balance Training,Canalithic Repositioning,Home Exercise Program,Joint Mobilizations, Manual Therapy,Neuromuscular Re-education,Patient/Caregiver Education,Self-Care/Home Management,Soft Tissue Mobilization,Taping, Therapeutic Activities, Therapeutic Exercises Modalities Cold Pack/Ice Massage,Hot Packs Next Visit Focus/Plan Next Note Type Treatment Note Next Visit Plan Progress gentle core strengthening, Theraband strengthening for intrascapular muscles and shoulder rotators in future, review exercises as needed, manual work, TrP manual work
--- NOTE | 2024-06-27 11:26 | PT.OTN ---
Current Diagnoses Dorsalgia, unspecified (06/27/24) Physical Therapy Treatment Note PT-OP-A Visit Information Start: 04/17/24 14:59 Freq: Status: Active Protocol: Document 06/27/24 10:47 MB (Rec: 06/27/24 11:22 MB [id number]) Out-Patient Physical Therapy Visit Information Visit Information Visit Type Treatment Note Visit Note Medicare 03/17 before KX Visit Start Time 10:47 Visit Stop Time 11:27 Visit Number 7 Number of CDL DEDICATED TRUCK DRIVER Visits 0 Evaluation Information Evaluation Date 04/18/24 Precautions Precautions Just dx with osteoporosis PT-OP-B Current Condition Start: 04/17/24 14:59 Freq: Status: Active Protocol: Document 04/18/24 10:31 MB (Rec: 04/18/24 11:59 MB [id number]) Current Condition History of Current Condition Onset Date Since age 24 y/o, 49 years Current Complaints Left sided intrascapular pain that moves into left migraine History of Current Condition Pt had COVID 2 months ago and she is currently being treated for PNA and she wears a mask to treatment. In November, pt hit her head and everything was clear except a tree and bud finding on chest CT. She has a follow-up in 6 months. Pt was in [place] when she fell in the [place]. February 06, she had COVID, was quite sick and felt better after 3 weeks. She never stopped coughing. Last week, she coughed up bright blood. She went back to and is referred to grain origination specialist and she has not yet had pulmonology appointment. In November, she had a phelgm test, could not cough up a lot, and it was negative for TB. Tree and bud has worsened in left lung sent then. Pt hasn't been feeling well and she has been coughing. 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 She gets migraines and she read about muscle knots. She takes hot baths, keeps her weight down, runs and she read in the [place] [employer] that she can get treatment from dry needling. Pt likes to have her left side worked on and not her right side. Pt sleeps on her left side and stretches out her left leg and bends up right knee and she sleeps with her arms up under her head. Pt denies numbness and tingling in UEs and LEs and she reports negative CA history. Treatment Goals Patient/Caregiver Goals To decreased left sided pain and to improve spinal mobility PT-OP-C Subjective Start: 04/17/24 14:59 Freq: Status: Active Protocol: Document 06/27/24 10:47 MB (Rec: 06/27/24 11:22 MB [id number]) OP-PT Subjective Patient Comments Patient Comments Pt had a bad night's sleep on Wednesday. It rained and she had a migraine and the muscles tend to seize up when she has these. She had increased back pain on Wednesday. She took a large dose of ibuprofen on Wednesday and slept a lot better. Pt felt good after last PT treatment. PT-OP-J Posture/Palpation/Skin Start: 04/17/24 14:59 Freq: Status: Active Protocol: Document 04/18/24 10:31 MB (Rec: 04/18/24 11:59 MB [id number]) Posture Evaluation Comments Posture Comments Standing posture in socks: mild Dowager's hump, right thoracic convexity and posterior positioning of thoracic spinal processes, right scapula mildly lower then the left, mild sway back, right iliac crest is mildly higher than the left, left foot is a little forward of right, increased Liat angle, mild overpronation B mid feet, forward and rounded shoulders . Sitting AROM thoracic rotation : right rotation is 10 deg less than to the left PT-OP-K Range of Motion Start: 04/17/24 14:59 Freq: Status: Active Protocol: Document 04/18/24 10:31 MB (Rec: 04/18/24 11:59 MB [id number]) Cervical Spine Range of Motion Cervical Spine Active Testing Position Standing Flexion 40 Extension 28 Rotation Left 60 Rotation Right 50 Lateral Flexion Left 18 Lateral Flexion Right 15 Comments Posture with head resting in mild left SB 5 deg Shoulder Goniometric Range of Motion Shoulder Left Active Testing Position Standing Flexion 160 Comments Normal abduction and IR Right Active Testing Position Standing Flexion 155 Comments Normal abduction and IR PT-OP-M Strength Start: 04/17/24 14:59 Freq: Status: Active Protocol: Document 04/18/24 10:31 MB (Rec: 04/18/24 11:59 MB [id number]) Shoulder Strength Shoulder Manual Muscle Testing Left Flexion 5 Normal Abduction (C5) 5 Normal Right Flexion 5 Normal Abduction (C5) 5 Normal Elbow/Forearm Strength Elbow and Forearm Manual Muscle Testing Left Flexion (C6) 5 Normal Extension (C7) 5 Normal Right Flexion (C6) 5 Normal Extension (C7) 5 Normal PT-OP-Q Treatments Start: 04/17/24 14:59 Freq: Status: Active Protocol: Document 06/27/24 10:47 MB (Rec: 06/27/24 11:22 MB [id number]) Therapeutic Exercises Supine Exercises Abdominal bracing Supine Exercise Name HEP, start position abd drawing in, pelvic tilt and kegel Side bilateral Reps/Minutes Several reps of all exercises Comments Knee rocking, HS, mini march, knee fall out, also bridge Manual Therapy Treatment Consent Patient gave verbal consent for manual Yes treatment Other Other Manual Treatments Pt prone: rib recoiling spine and ribs and B tension, STM B upper traps and levator, TrP left levator, subscap and infraspinatus, pt supine: grade III PA mobs cervical spine, STM cervical paraspinals, B SCM, positional release left upper traps greater than right, B pect major PT-OP-T Assessment and Plan Start: 04/17/24 14:59 Freq: Status: Active Protocol: Document 06/27/24 10:47 MB (Rec: 06/27/24 11:22 MB [id number]) Physical Therapy Assessment Rehab Potential Rehabilitation Potential Fair Evaluation Complexity Number of Personal Factors/Comorbidities 1-2 Number of Body Systems Impaired 1-2 Clinical Presentation at Evaluation Evolving Impairments Impairments Balance,Pain,Posture,ROM,Soft Tissue Mobility,Strength Goals 2 Impairment Lack of HEP Mcfp Goal (LTG) Pt will perform progressive alignment, breathing, flexibility, strengthenging and balance exercises with I to improve thoracic mobility and pain. 05/23/24: Pt has only had one treatment so far and exercises have not been prescribed 06/20/24: Pt is doing doorway stretch, gentle core progression, open book, therapy ball exercises. LTG Duration 8 weeks 1 Impairment Decreased thoracic rotation in sitting, worse to the right Armor Senior Sergeant Goal (LTG) Pt will present with B thoracic rotation in sitting equal and to at least 30 deg to improve pain. 05/23/24: B thoracic rotation is grossly 25 deg and pt reports pain to the right. 06/20/24: Pt progressing and looking equal 25-30 deg LTG Duration 8 weeks Assessment Summary Assessment Progressed gentle core strengthening today and ongoing manual work. Con't per plan below, two more treatments, intrascapular and shoulder strengthening next treatment. Physical Therapy Plan Frequency and Duration Frequency of Treatment 1-2x/wk Duration of treatment (weeks) 5 Plan of Care Start Date 06/06/24 Plan of Care End Date 07/28/24 Therapeutic Interventions Therapeutic Interventions Balance Training,Canalithic Repositioning,Home Exercise Program,Joint Mobilizations, Manual Therapy,Neuromuscular Re-education,Patient/Caregiver Education,Self-Care/Home Management,Soft Tissue Mobilization,Taping, Therapeutic Activities, Therapeutic Exercises Modalities Cold Pack/Ice Massage,Hot Packs Next Visit Focus/Plan Next Note Type Treatment Note Next Visit Plan Theraband strengthening for intrascapular muscles and shoulder rotators in future, review exercises as needed, manual work, TrP manual work
--- NOTE | 2024-07-05 12:17 | PT.OTN ---
Current Diagnoses Dorsalgia, unspecified (07/05/24) Physical Therapy Treatment Note PT-OP-A Visit Information Start: 04/17/24 14:59 Freq: Status: Active Protocol: Document 07/05/24 11:31 MB (Rec: 07/05/24 12:10 MB [id number]) Out-Patient Physical Therapy Visit Information Visit Information Visit Type Treatment Note Visit Note Medicare 04/17 before KX Visit Start Time 11:31 Visit Stop Time 12:11 Visit Number 8 Number of [employer] Visits 0 Evaluation Information Evaluation Date 04/18/24 Precautions Precautions Just dx with osteoporosis PT-OP-B Current Condition Start: 04/17/24 14:59 Freq: Status: Active Protocol: Document 04/18/24 10:31 MB (Rec: 04/18/24 11:59 MB [id number]) Current Condition History of Current Condition Onset Date Since age 24 y/o, 49 years Current Complaints Left sided intrascapular pain that moves into left migraine History of Current Condition Pt had COVID 2 months ago and she is currently being treated for PNA and she wears a mask to treatment. In November, pt hit her head and everything was clear except a tree and bud finding on chest CT. She has a follow-up in 6 months. Pt was in [place] when she fell in the [place]. February 06, she had COVID, was quite sick and felt better after 3 weeks. She never stopped coughing. Last week, she coughed up bright blood. 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 In November, she had a phelgm test, could not cough up a lot, and it was negative for TB. Tree and bud has worsened in left lung sent then. Pt hasn't been feeling well and she has been coughing. 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 She gets migraines and she read about muscle knots. She takes hot baths, keeps her weight down, runs and she read in the [employer] that she can get treatment from [facility]. Pt likes to have her left side worked on and not her right side. Pt sleeps on her left side and stretches out her left leg and bends up right knee and she sleeps with her arms up under her head. Pt denies numbness and tingling in UEs and LEs and she reports negative CA history. Treatment Goals Patient/Caregiver Goals To decreased left sided pain and to improve spinal mobility PT-OP-C Subjective Start: 04/17/24 14:59 Freq: Status: Active Protocol: Document 07/05/24 11:31 MB (Rec: 07/05/24 12:10 MB [id number]) OP-PT Subjective Patient Comments Patient Comments Pt states that she had a lot of soreness in right upper traps area after last treatment. It is better now. PT-OP-J Posture/Palpation/Skin Start: 04/17/24 14:59 Freq: Status: Active Protocol: Document 04/18/24 10:31 MB (Rec: 04/18/24 11:59 MB [id number]) Posture Evaluation Comments Posture Comments Standing posture in socks: mild Dowager's hump, right thoracic convexity and posterior positioning of thoracic spinal processes, right scapula mildly lower then the left, mild sway back, right iliac crest is mildly higher than the left, left foot is a little forward of right, increased Liat angle, mild overpronation B mid feet, forward and rounded shoulders . Sitting AROM thoracic rotation : right rotation is 10 deg less than to the left PT-OP-K Range of Motion Start: 04/17/24 14:59 Freq: Status: Active Protocol: Document 04/18/24 10:31 MB (Rec: 04/18/24 11:59 MB [id number]) Cervical Spine Range of Motion Cervical Spine Active Testing Position Standing Flexion 40 Extension 28 Rotation Left 60 Rotation Right 50 Lateral Flexion Left 18 Lateral Flexion Right 15 Comments Posture with head resting in mild left SB 5 deg Shoulder Goniometric Range of Motion Shoulder Left Active Testing Position Standing Flexion 160 Comments Normal abduction and IR Right Active Testing Position Standing Flexion 155 Comments Normal abduction and IR PT-OP-M Strength Start: 04/17/24 14:59 Freq: Status: Active Protocol: Document 04/18/24 10:31 MB (Rec: 04/18/24 11:59 MB [id number]) Shoulder Strength Shoulder Manual Muscle Testing Left Flexion 5 Normal Abduction (C5) 5 Normal Right Flexion 5 Normal Abduction (C5) 5 Normal Elbow/Forearm Strength Elbow and Forearm Manual Muscle Testing Left Flexion (C6) 5 Normal Extension (C7) 5 Normal Right Flexion (C6) 5 Normal Extension (C7) 5 Normal PT-OP-Q Treatments Start: 04/17/24 14:59 Freq: Status: Active Protocol: Document 07/05/24 11:31 MB (Rec: 07/05/24 12:10 MB [id number]) Therapeutic Exercises Standing Exercises Scapular retraction with triceps strengthening Side bilateral Reps/Minutes Liberty band Comments 10 reps Reverse fly Side bilateral Equipment Used Liberty band Comments 10 reps Shoulder ER Side bilateral Equipment Used Liberty band Comments 10 reps Row with arms straight Side bilateral Equipment Used Liberty band Comments 10 reps Manual Therapy Treatment Consent Patient gave verbal consent for manual Yes treatment Other Other Manual Treatments Pt supine with head and legs supported: STM and positional release B upper traps, right levator scap, intrascapular muscles, cervical paraspinal muscles, B infraspinatus, positional release B posterior ribs, PA mobs grade III cervical spine PT-OP-T Assessment and Plan Start: 04/17/24 14:59 Freq: Status: Active Protocol: Document 07/05/24 11:31 MB (Rec: 07/05/24 12:10 MB [id number]) Physical Therapy Assessment Rehab Potential Rehabilitation Potential Fair Evaluation Complexity Number of Personal Factors/Comorbidities 1-2 Number of Body Systems Impaired 1-2 Clinical Presentation at Evaluation Evolving Impairments Impairments Balance,Pain,Posture,ROM,Soft Tissue Mobility,Strength Goals 2 Impairment Lack of HEP Fiberglass Ski Maker Goal (LTG) Pt will perform progressive alignment, breathing, flexibility, strengthenging and balance exercises with I to improve thoracic mobility and pain. 05/23/24: Pt has only had one treatment so far and exercises have not been prescribed 06/20/24: Pt is doing doorway stretch, gentle core progression, open book, therapy ball exercises. LTG Duration 8 weeks 1 Impairment Decreased thoracic rotation in sitting, worse to the right Fiberglass Ski Maker Goal (LTG) Pt will present with B thoracic rotation in sitting equal and to at least 30 deg to improve pain. 05/23/24: B thoracic rotation is grossly 25 deg and pt reports pain to the right. 06/20/24: Pt progressing and looking equal 25-30 deg LTG Duration 8 weeks Assessment Summary Assessment Progressed intrascapular and shoulder strengthening today. Discharge next treatment. Physical Therapy Plan Frequency and Duration Frequency of Treatment 1-2x/wk Duration of treatment (weeks) 5 Plan of Care Start Date 06/06/24 Plan of Care End Date 07/28/24 Therapeutic Interventions Therapeutic Interventions Balance Training,Canalithic Repositioning,Home Exercise Program,Joint Mobilizations, Manual Therapy,Neuromuscular Re-education,Patient/Caregiver Education,Self-Care/Home Management,Soft Tissue Mobilization,Taping, Therapeutic Activities, Therapeutic Exercises Modalities Cold Pack/Ice Massage,Hot Packs Next Visit Focus/Plan Next Note Type Discharge Summary Next Visit Plan Review exercises as needed, manual work as needed and prepare for d/c
--- NOTE | 2024-07-17 15:45 | PT.OPDS ---
Current Diagnoses Dorsalgia, unspecified (07/05/24) Visit Care Team Role Provider Type Ruchi Nash MD Family Provider Physician Specialty: STE[employer] Address: [address] [place] [address], [address] Email: [email or web address] Sushma Hall MD Attending Provider Non-Staff Primary Care Provider Referring Provider Specialty: Internal Medicine Address: [address] [id number], [place], [address] Email: Visit Number Visit Number 8 Discharge Summary PT-OP-B Current Condition Start: 04/17/24 14:59 Freq: Status: Active Protocol: Document 04/18/24 10:31 MB (Rec: 04/18/24 11:59 MB [id number]) Current Condition History of Current Condition Onset Date Since age 24 y/o, 49 years Current Complaints Left sided intrascapular pain that moves into left migraine History of Current Condition Pt had COVID 2 months ago and she is currently being treated for PNA and she wears a mask to treatment. In November, pt hit her head and everything was clear except a tree and bud finding on chest CT. She has a follow-up in 6 months. Pt was in [place] when she fell in the [place]. February 06, she had COVID, was quite sick and felt better after 3 weeks. She never stopped coughing. Last week, she coughed up bright blood. 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 In November, she had a phelgm test, could not cough up a lot, and it was negative for TB. Tree and bud has worsened in left lung sent then. Pt hasn't been feeling well and she has been coughing. 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 She gets migraines and she read about muscle knots. She takes hot baths, keeps her weight down, runs and she read in the [place] [employer] that she can get treatment from dry needling. Pt likes to have her left side worked on and not her right side. Pt sleeps on her left side and stretches out her left leg and bends up right knee and she sleeps with her arms up under her head. Pt denies numbness and tingling in UEs and LEs and she reports negative CA history. Treatment Goals Patient/Caregiver Goals To decreased left sided pain and to improve spinal mobility PT-OP-C Subjective Start: 04/17/24 14:59 Freq: Status: Active Protocol: Document 07/05/24 11:31 MB (Rec: 07/05/24 12:10 MB [id number]) OP-PT Subjective Patient Comments Patient Comments Pt states that she had a lot of soreness in right upper traps area after last treatment. It is better now. PT-OP-J Posture/Palpation/Skin Start: 04/17/24 14:59 Freq: Status: Active Protocol: Document 04/18/24 10:31 MB (Rec: 04/18/24 11:59 MB [id number]) Posture Evaluation Comments Posture Comments Standing posture in socks: mild Dowager's hump, right thoracic convexity and posterior positioning of thoracic spinal processes, right scapula mildly lower then the left, mild sway back, right iliac crest is mildly higher than the left, left foot is a little forward of right, increased Liat angle, mild overpronation B mid feet, forward and rounded shoulders . Sitting AROM thoracic rotation : right rotation is 10 deg less than to the left PT-OP-K Range of Motion Start: 04/17/24 14:59 Freq: Status: Active Protocol: Document 04/18/24 10:31 MB (Rec: 04/18/24 11:59 MB [id number]) Cervical Spine Range of Motion Cervical Spine Active Testing Position Standing Flexion 40 Extension 28 Rotation Left 60 Rotation Right 50 Lateral Flexion Left 18 Lateral Flexion Right 15 Comments Posture with head resting in mild left SB 5 deg Shoulder Goniometric Range of Motion Shoulder Left Active Testing Position Standing Flexion 160 Comments Normal abduction and IR Right Active Testing Position Standing Flexion 155 Comments Normal abduction and IR PT-OP-M Strength Start: 04/17/24 14:59 Freq: Status: Active Protocol: Document 04/18/24 10:31 MB (Rec: 04/18/24 11:59 MB [id number]) Shoulder Strength Shoulder Manual Muscle Testing Left Flexion 5 Normal Abduction (C5) 5 Normal Right Flexion 5 Normal Abduction (C5) 5 Normal Elbow/Forearm Strength Elbow and Forearm Manual Muscle Testing Left Flexion (C6) 5 Normal Extension (C7) 5 Normal Right Flexion (C6) 5 Normal Extension (C7) 5 Normal PT-OP-T Assessment and Plan Start: 04/17/24 14:59 Freq: Status: Active Protocol: Document 07/17/24 15:43 MB (Rec: 07/17/24 15:45 MB [id number]) Physical Therapy Assessment Assessment Summary Assessment Pt had to cancel last appointment tomorrow. She is doing great. Will d/c PT.
== END 2024-07-19 14:56 | disposition home or self-care (01) ==
LOC: PHYS 11:30
PROVIDERS: Family Provider Specialist; PCP Internal Medicine; Referring Provider Internal Medicine; Visit Provider Internal Medicine
DX: M54.9 Dorsalgia, unspecified (principal)
CPT/HCPCS: 97110; 97140; 97161; 97535

== ENCOUNTER → 2024-11-12 12:25 | Outpatient (CLI) | payer MEDICARE, OTHER, SELFPAY ==
--- NOTE | 2024-11-12 12:29 | DI.RAD.S_ITS ---
PROCEDURE: XR FOOT RT MIN 3V INDICATIONS: Right foot pain TECHNIQUE: 3 views of the foot were acquired. COMPARISON: None. FINDINGS: Bones: No fractures or dislocations. No suspicious bony lesions. Hallux valgus deformity with moderate 1st MTP narrowing. Otherwise, [id number] scattered IP narrowing. Soft tissues: No tibiotalar joint effusion. Achilles tendon appears normal. IMPRESSION: Hallux valgus deformity with 1st MTP narrowing. Dictated by: Jyoti Daniel M.D. on 11/12/2024 at 14:20 Approved by: Jyoti Daniel M.D. on 11/12/2024 at 14:20
== END ==
PROVIDERS: Family Provider Specialist; PCP Internal Medicine; Referring Provider Nurse Practitioner Family; Visit Provider Nurse Practitioner Family
DX: M20.11 Hallux valgus (acquired), right foot (principal); M79.671 Pain in right foot
CPT/HCPCS: 73630

== ENCOUNTER → 2025-05-23 17:45 | Outpatient (CLI) | payer MEDICARE, OTHER, SELFPAY ==
--- NOTE | 2025-05-23 17:49 | DI.RAD.S_ITS ---
PROCEDURE: XR HAND RT MIN 3V INDICATIONS: Closed garage door on 3rd and 4th finger TECHNIQUE: 3 views of the hand(s) acquired. COMPARISON: None. FINDINGS: Mild soft tissue swelling of the right 3rd and 4th digits distally no radiographic evidence of displaced fracture, dislocation or high attenuation soft tissue foreign degenerative changes are noted the 1st carpal-metacarpal and at the 5th DIP joint most notably. Mild nonspecific soft tissue calcifications are noted adjacent to the proximal base of the 1st metacarpal. IMPRESSION: No radiographic evidence of fracture or dislocation. Degenerative changes. If symptoms persist or worsen, or there is high clinical suspicion of right hand abnormality, MRI could be performed. Dictated by: Rishabh Guerrero M.D. on 05/25/2025 at 11:03 Approved by: Rishabh Guerrero M.D. on 05/25/2025 at 11:07
== END ==
LOC: RAD 17:48
PROVIDERS: PCP Internal Medicine; Referring Provider Nurse Practitioner Family; Visit Provider Nurse Practitioner Family
DX: S60.00XA Contusion of unspecified finger without damage to nail, initial encounter (principal); W23.0XXA Caught, crushed, jammed, or pinched between moving objects, initial encounter
CPT/HCPCS: 73130